=== PATIENT | male | born 1950 | race Two or more races ===

== ENCOUNTER → 2022-11-01 | Outpatient (CLI) | payer MEDICARE, MEDICAID | END | disposition home or self-care (01) | LOC: XYW 08:32 | PROVIDERS: ATTEND Internal Medicine | DX: I08.3 Combined rheumatic disorders of mitral, aortic and tricuspid valves (principal); R07.9 Chest pain, unspecified | CPT/HCPCS: 93306 ==

== ENCOUNTER → 2022-11-01 | Outpatient (CLI) | payer MEDICARE, MEDICAID ==
[2022-11-01 09:47] LABS: Basophils # (auto) 0 10 ^3/uL (0-0.2); Basophils % (auto) 0.3 % (0.0-2.0); Eosinophils # (auto) 0.1 10 ^3/uL (0-0.8); Eosinophils % (auto) 1.1 % (0.0-7.0); Hematocrit 49.9 % (41.0-53.0); Hemoglobin 16.3 g/dL (13.5-17.5); Lymphocytes # (auto) 2.2 10 ^3/uL (0.4-5.4); Lymphocytes % (auto) 41.1 % (10.0-50.0); Mean Corpuscular Hemoglobin 29.7 pg (28.0-32.0); Mean Corpuscular Hgb Conc. 32.6 g/dL (32.0-36.0); Mean Corpuscular Volume 91.1 fL (80.0-100.0); Monocytes # (auto) 0.5 10 ^3/uL (0-1.3); Monocytes % (auto) 9.9 % (0.0-12.0); Neutrophils # (auto) 2.5 10 ^3/uL (1.6-8.6); Neutrophils % (auto) 47.6 % (37.0-80.0); Red Blood Cells 5.49 10^6/uL (4.5-5.90); Red Cell Distribution Width 14.1 % (11.8-14.3); White Blood Cell 5.3 10^3/uL (4.4-10.8)
[2022-11-01 10:04] LABS: Albumin 3.8 g/dL (3.4-5.0); Potassium 4.2 mmol/L (3.5-5.1)
[2022-11-01 10:12] LABS: BUN/Creatinine Ratio 12.6; Bilirubin, Total 0.8 mg/dL (0.2-1.0); Calcium 9.8 mg/dL (8.5-10.1); Free T4 (Free Thyroxine) 1.46 ng/dL (0.89-1.76); Total Protein 7.9 g/dL (6.4-8.2)
[2022-11-01 10:13] LABS: Free T3 3.4 pg/mL (2.3-4.2)
== END | disposition home or self-care (01) ==
LOC: LAB 09:02
PROVIDERS: ATTEND Internal Medicine
DX: I10 Essential (primary) hypertension (principal)
CPT/HCPCS: 36415; 80053; 80061; 84439; 84443; 84481; 85025

== ENCOUNTER → 2022-11-02 | Outpatient (CLI) | payer MEDICARE, MEDICAID ==
[~2022-11-02] VITALS: Ht 175.3 cm; Wt 95.3 kg
[~2022-11-02] MED LIST: ADENOSINE 80 MG in GIVE UN-DILUTED 0 ML IV STA
[2022-11-02 08:49] VITALS: BP 115/73
== END | disposition home or self-care (01) ==
LOC: XYW 08:22 → EDUNIT# 08:30
PROVIDERS: ATTEND Internal Medicine
DX: R07.9 Chest pain, unspecified (principal)
CPT/HCPCS: 78452; 93017; A9500; J0153

== ENCOUNTER → 2022-11-25 | Outpatient (CLI) | payer MEDICARE, MEDICAID ==
[2022-11-25 08:54] LABS: Basophils # (auto) 0 10 ^3/uL (0-0.2); Basophils % (auto) 0.3 % (0.0-2.0); Eosinophils # (auto) 0.1 10 ^3/uL (0-0.8); Eosinophils % (auto) 0.9 % (0.0-7.0); Hematocrit 45.5 % (41.0-53.0); Hemoglobin 16.1 g/dL (13.5-17.5); Lymphocytes # (auto) 2.9 10 ^3/uL (0.4-5.4); Lymphocytes % (auto) 38.6 % (10.0-50.0); Mean Corpuscular Hemoglobin 31.6 pg (28.0-32.0); Mean Corpuscular Hgb Conc. 35.5 g/dL (32.0-36.0); Monocytes # (auto) 0.5 10 ^3/uL (0-1.3); Monocytes % (auto) 6.9 % (0.0-12.0); Neutrophils # (auto) 3.9 10 ^3/uL (1.6-8.6); Neutrophils % (auto) 53.3 % (37.0-80.0); Nucleated Red Blood Cells % 0.2 %; Red Blood Cells 5.11 10^6/uL (4.5-5.90); Red Cell Distribution Width 13.6 % (11.8-14.3); White Blood Cell 7.4 10^3/uL (4.4-10.8)
[2022-11-25 09:06] LABS: Urine Bacteria NONE SEEN /hpf (None Seen); Urine Blood Negative /uL (Negative); Urine Specific Gravity 1.022 (1.001-1.035); Urine Sperm PRESENT /hpf (None Seen); Urine WBC <1 /hpf (0 - 3)
[2022-11-25 09:38] LABS: Potassium 3.9 mmol/L (3.5-5.1)
[2022-11-25 09:42] LABS: BUN/Creatinine Ratio 13.3; Calcium 8.9 mg/dL (8.5-10.1)
== END | disposition home or self-care (01) ==
LOC: LAB 08:29
PROVIDERS: ATTEND Student in an Organized Health Care Education/Training Program
DX: I10 Essential (primary) hypertension (principal); N39.0 Urinary tract infection, site not specified
CPT/HCPCS: 36415; 80048; 81001; 85025; 87086

== ENCOUNTER → 2023-09-30 | Outpatient (CLI) | payer MEDICARE, MEDICAID ==
[2023-09-30 08:49] LABS: Urine Blood Negative /uL (Negative); Urine Clarity Clear (Clear); Urine Color Colorless (Yellow); Urine Protein, UAD Negative (Negative); Urine Specific Gravity 1.012 (1.001-1.035); Urine Urobilinogen Normal (Negative); Urine pH 6.5 (5.0-8.0)
[2023-09-30 09:26] LABS: Alanine Aminotransferase 36 U/L (7-40); Albumin 4.7 g/dL (3.2-4.8); Alkaline Phosphatase 84 U/L (46-116); Anion Gap 5 (5-15); Aspartate Aminotransferase 29 U/L (13-40); Bilirubin, Total 0.8 mg/dL (0.2-1.0); Blood Urea Nitrogen 13 mg/dL (9-23); Calcium 9.8 mg/dL (8.5-10.1); Carbon Dioxide 30 mmol/L (20-30); Chloride 103 mmol/L (98-107); Cholesterol 105 mg/dL (< 200); Glucose 103 mg/dL (74-106); HDL Cholesterol 42 mg/dL (40-59); LDL Cholesterol 47 mg/dL (< 100); Potassium 4.5 mmol/L (3.5-5.1); Sodium 138 mmol/L (136-145); Total Protein 7.5 g/dL (5.7-8.2); Triglycerides 113 mg/dL (< 150)
== END | disposition home or self-care (01) ==
LOC: LAB 08:03
DX: Z12.5 Encounter for screening for malignant neoplasm of prostate (principal); I12.9 Hypertensive chronic kidney disease with stage 1 through stage 4 chronic kidney disease, or unspecified chronic kidney disease; N18.31 Chronic kidney disease, stage 3a; R73.03 Prediabetes
CPT/HCPCS: 36415; 80053; 80061; 81003; 83036; 84153

== ENCOUNTER → 2023-10-10 | Outpatient (CLI) | payer MEDICARE, MEDICAID | END | disposition home or self-care (01) | LOC: LAB 12:48 | DX: I12.9 Hypertensive chronic kidney disease with stage 1 through stage 4 chronic kidney disease, or unspecified chronic kidney disease (principal); N18.31 Chronic kidney disease, stage 3a; R73.03 Prediabetes | CPT/HCPCS: 82274 ==

== ENCOUNTER 2023-12-07 08:53 | Day surgery (SDC) | payer MEDICARE, MEDICAID ==
[~2023-12-07] VITALS: Ht 175.3 cm; Wt 93.4 kg
[2023-12-07] VITALS (8 sets, daily range): BP systolic 87–102; BP diastolic 47–65; PULSE 52–71; RESP 12–16; O2SAT 94–97
[~2023-12-07 08:53] MED LIST changes: -ADENOSINE 80 MG in GIVE UN-DILUTED 0 ML IV STA; +ASPI-543 PO; +ATOR20TA50 PO; +CHOL1CAP58 PO; +DICL50TA4 PO; +DONE1TAB88 PO; +LISI-285 PO; +MELO-335 PO; +PANT40T PO; +TAMS0.4C36 PO
[2023-12-07] MEDS ORDERED: TRAZ-227 PO (09:48)
[2023-12-07] MEDS ORDERED: GABA-1308 PO (09:48)
[2023-12-07] MEDS ORDERED: LORA-483 PO (09:48)
[2023-12-07] MEDS ORDERED: HYDR-4902 PO (09:48)
[2023-12-07] MEDS ORDERED: OXYB5TAB10 PO (09:48)
[2023-12-07] MEDS ORDERED: ERGO1CAP23 PO (10:02)
[2023-12-07] MEDS ORDERED: GABA-1250 PO (10:10)
[2023-12-07] MEDS ORDERED: HEPARIN SODIUM (PORCINE) 5000 UNITS/ML 1ML VIAL ONE (11:42)
[2023-12-07] MEDS ORDERED: ANGIOMAX 250 MG VIAL IV ONE (11:42)
[2023-12-07] MEDS ORDERED: VERAPAMIL 2.5MG/ML INJ 2ML VIAL IV ONE (11:42)
[2023-12-07] MEDS ORDERED: IODIXANOL 320MG/ML 100ML BTL IV ONE (11:43)
[2023-12-07] MEDS ORDERED: MIDAZOLAM HCL 2MG/2ML 2ml VIAL (1mg/ml) ONE (11:43)
[2023-12-07] MEDS ORDERED: SODIUM CHL 0.9% 0 ML ONE (11:43)
[2023-12-07] MEDS ORDERED: fentaNYL CITRATE 100 MCG/2 ML VL ONE (11:43)
[2023-12-07] MEDS ORDERED: LIDOCAINE 2%HCL (LOCAL ANESTH.) INJ 20ML MDV ONE (11:43)
== END 2023-12-07 15:30 | disposition home or self-care (01) ==
LOC: CATH 08:53
PROVIDERS: ATTEND Internal Medicine
DX: I25.10 Atherosclerotic heart disease of native coronary artery without angina pectoris (principal); Z79.1 Long term (current) use of non-steroidal anti-inflammatories (NSAID); Z79.82 Long term (current) use of aspirin; Z79.899 Other long term (current) drug therapy
CPT/HCPCS: 93458; C1769; C1887; C1894; J1644; J2250; J3010; J7030; Q9967; 99152

== ENCOUNTER → 2024-05-28 | Outpatient (CLI) | payer MEDICARE, MEDICAID ==
[~2024-05-28] MED LIST changes: -CHOL1CAP58 PO; +ERGO1CAP23 PO; +GABA-1250 PO; +HYDR-4902 PO; +LORA-483 PO; -MELO-335 PO; +MELO15TA29 PO; +OXYB5TAB14 PO; +TRAZ-227 PO
[2024-05-28 08:06] LABS: Urine Bacteria None Seen /hpf (None Seen)
[2024-05-28 08:16] LABS: Basophils # (auto) 0 10 ^3/uL (0-0.2); Basophils % (auto) 0.6 % (0.0-2.0); Eosinophils # (auto) 0.1 10 ^3/uL (0-0.8); Eosinophils % (auto) 1.5 % (0.0-7.0); Hematocrit 43.9 % (41.0-53.0); Lymphocytes # (auto) 2.7 10 ^3/uL (0.4-5.4); Lymphocytes % (auto) 39.6 % (10.0-50.0); Mean Corpuscular Hemoglobin 30.1 pg (28.0-32.0); Mean Corpuscular Hgb Conc. 34.3 g/dL (32.0-36.0); Mean Corpuscular Volume 87.9 fL (80.0-100.0); Monocytes # (auto) 0.7 10 ^3/uL (0-1.3); Monocytes % (auto) 9.7 % (0.0-12.0); Neutrophils # (auto) 3.4 10 ^3/uL (1.6-8.6); Neutrophils % (auto) 48.6 % (37.0-80.0); Red Blood Cells 4.99 10^6/uL (4.5-5.90); Red Cell Distribution Width 14.7 % (11.8-14.3); White Blood Cell 6.9 10^3/uL (4.4-10.8)
[2024-05-28 08:17] LABS: Urine Blood Negative /uL (Negative); Urine Clarity Clear (Clear); Urine Color Light-Yellow (Yellow); Urine Protein, UAD Negative (Negative); Urine Urobilinogen Normal (Negative); Urine WBC <1 /hpf (0 - 3); Urine pH 5.5 (5.0-9.0)
[2024-05-28 08:49] LABS: Alanine Aminotransferase 26 U/L (7-40); Albumin 4.5 g/dL (3.2-4.8); Alkaline Phosphatase 90 U/L (46-116); Anion Gap 8 (5-15); Aspartate Aminotransferase 21 U/L (13-40); Calcium 9.9 mg/dL (8.7-10.4); Carbon Dioxide 25 mmol/L (20-30); Chloride 105 mmol/L (98-107); Cholesterol 104 mg/dL (< 200); Glucose 104 mg/dL (74-106); Sodium 138 mmol/L (136-145)
[2024-05-28 08:50] LABS: BUN/Creatinine Ratio 14.8 (10.0-20.0); Blood Urea Nitrogen 18 mg/dL (9-23); Triglycerides 132 mg/dL (< 150)
[2024-05-28 08:51] LABS: HDL Cholesterol 44 mg/dL (40-59); LDL Cholesterol 45 mg/dL (< 100)
[2024-05-28 08:52] LABS: Bilirubin, Total 0.7 mg/dL (0.2-1.0); Total Protein 7.1 g/dL (5.7-8.2)
== END | disposition home or self-care (01) ==
LOC: LAB 07:56
PROVIDERS: ATTEND Student in an Organized Health Care Education/Training Program
DX: I10 Essential (primary) hypertension (principal); R73.9 Hyperglycemia, unspecified; R35.1 Nocturia
CPT/HCPCS: 36415; 80053; 80061; 81001; 83036; 84443; 85025

== ENCOUNTER → 2024-09-26 | Outpatient (CLI) | payer MEDICARE, MEDICAID ==
[~2024-09-26] MED LIST changes: -TAMS0.4C36 PO; +TAMS0.4C39 PO
[2024-09-26 07:37] LABS: Urine Bacteria None Seen /hpf (None Seen); Urine WBC None Seen /hpf (0 - 3)
[2024-09-26 08:21] LABS: Basophils # (auto) 0 10 ^3/uL (0-0.2); Basophils % (auto) 0.5 % (0.0-2.0); Eosinophils # (auto) 0.2 10 ^3/uL (0-0.8); Eosinophils % (auto) 2.4 % (0.0-7.0); Hematocrit 46.8 % (41.0-53.0); Hemoglobin 15.6 g/dL (13.5-17.5); Lymphocytes # (auto) 2.6 10 ^3/uL (0.4-5.4); Lymphocytes % (auto) 40.1 % (10.0-50.0); Mean Corpuscular Hemoglobin 30.6 pg (28.0-32.0); Mean Corpuscular Hgb Conc. 33.3 g/dL (32.0-36.0); Mean Corpuscular Volume 91.9 fL (80.0-100.0); Monocytes # (auto) 0.6 10 ^3/uL (0-1.3); Monocytes % (auto) 9.7 % (0.0-12.0); Neutrophils # (auto) 3.1 10 ^3/uL (1.6-8.6); Neutrophils % (auto) 47.3 % (37.0-80.0); Nucleated Red Blood Cells % 0.1 %; Platelet Count (auto) 189 10^3/uL (140-450); Red Blood Cells 5.09 10^6/uL (4.5-5.90); Red Cell Distribution Width 14.6 % (11.8-14.3); White Blood Cell 6.5 10^3/uL (4.4-10.8)
[2024-09-26 08:29] LABS: Urine Blood TRACE /uL (Negative); Urine Clarity Clear (Clear); Urine Color Light-Yellow (Yellow); Urine Protein, UAD Negative (Negative); Urine Specific Gravity 1.018 (1.001-1.035); Urine Urobilinogen Normal (Negative)
[2024-09-26 08:55] LABS: Alanine Aminotransferase 29 U/L (7-40); Alkaline Phosphatase 96 U/L (46-116); Anion Gap 7 (5-15); BUN/Creatinine Ratio 11.3 (10.0-20.0); Blood Urea Nitrogen 13 mg/dL (9-23); Calcium 10.2 mg/dL (8.7-10.4); Carbon Dioxide 29 mmol/L (20-31); Chloride 105 mmol/L (98-107); Glucose 96 mg/dL (74-106); Potassium 4.3 mmol/L (3.5-5.1); Sodium 141 mmol/L (136-145)
[2024-09-26 08:56] LABS: Albumin 4.4 g/dL (3.2-4.8); Aspartate Aminotransferase 22 U/L (13-40); Bilirubin, Total 0.6 mg/dL (0.2-1.0); Total Protein 7.3 g/dL (5.7-8.2)
== END | disposition home or self-care (01) ==
LOC: LAB 07:21
PROVIDERS: ATTEND Student in an Organized Health Care Education/Training Program
DX: I10 Essential (primary) hypertension (principal); R73.9 Hyperglycemia, unspecified
CPT/HCPCS: 36415; 80053; 81001; 83036; 84443; 85025

== ENCOUNTER 2025-04-17 14:40 | Inpatient (IN) | payer MEDICARE, MEDICAID ==
[~2025-04-17] VITALS: Ht 175.3 cm; Wt 90.5 kg
--- NOTE | 2025-04-17 14:53 | ED.PDOC ---
GI ASSESSMENT HPI Comments 74 y.o male presents to the ED for a chief complaint of left sided abdominal pain associated with nausea and vomiting that started 9 days ago. Patient describes pain as sharp, constant and non radiating with no alleviating or precipitating factors. Patient denies any diarrhea, fever, chills, dysuria, hematuria or bloody stool. Patient has a medical history of HTN and multiple muskeletal surgeries. Time Seen by MD: 14:45 Reviewed Notes: Nurses Notes, Medications, Allergies Allergies: Coded Allergies: NO KNOWN ALLERGIES (Unverified , 12/05/23) Home Meds Reported Medications Gabapentin (Gabapentin) 300 Mg Cap, 300 MG PO HS for neuropathy, MG 12/07/23 Ergocalciferol (VITAMIN D 70525 UNIT) 50,000 [place], [address] UNIT PO DAILY, CAP 12/07/23 Oxybutynin Chloride (Oxybutynin Chloride) 5 Mg Tab, 5 MG PO DAILY, TAB 12/07/23 Loratadine (CLARITIN TABLET) 10 Mg Tb, 10 MG PO DAILY for allergies, TAB 12/07/23 Trazodone Hcl (Trazodone Hcl) 50 Mg Tab, 50 MG PO DAILY for anxiety, MG 12/07/23 Hydrocodone-Acetaminophen (Hydrocodone Bitartrate/AC 5-325 mg) 1 Tab Tab, 1 TAB PO BIDP PRN for PAIN SCALE 1 THRU 6, TAB 12/07/23 Aspirin (Aspir-Low) 81 Mg Tab, 81 MG PO DAILY, MG 12/05/23 Meloxicam (Meloxicam) 15 Mg Tab, 1 TAB PO DAILY for arthritic pain, #30 TAB 2 Refills 12/05/23 Tamsulosin Hcl (Tamsulosin Hcl) 0.4 Mg Cap, MG PO QPM for bph for 30 Days, MG 12/05/23 Pantoprazole Sodium Sesquihydr (Pantoprazole Sodium) 40 Mg Tab, 40 MG PO for over active bladder, TAB 12/05/23 Atorvastatin Calcium (ATORVASTATIN CALCIUM) 20 Mg Tab, 1 TAB PO DAILY for hyperlipidemia, #30 TAB 5 Refills 12/05/23 Diclofenac Sodium (Diclofenac Sodium Ec) 50 Mg Tab, 1 TAB PO DAILY for pain, #60 TAB 1 Refill 12/05/23 Donepezil Hydrochloride (DONEPEZIL HCL) 10 Mg Tab, 10 MG PO DAILY for htn, MG 12/05/23 Lisinopril & Hydrochlorothiazi (Lisinopril/Hydrochlorothi) 1 Tab Tab, 1 TAB PO DAILY for htn, #30 TAB 5 Refills 12/05/23 Information Source: Patient Mode of Arrival: Ambulatory Timing: Days (9) Duration: Since onset Quality: Sharp Vomitus: Soft Stool: Normal Severity: Moderate Recent: None Recent Hx of: None Pain Location: LUQ, LLQ Modifying Factors: Nothing Associated sign and symptoms: Nausea, Vomiting, Abdominal Pain Past Medical History PAST MEDICAL HISTORY: HTN Surgical History (Other): back, cervical, right knee Family History Family History: Reviewed,noncontributory to illness Social History Smoker: Non-Smoker Alcohol: Denies ETOH Use Drugs: Denies Drug Use Lives In: Home Constitutional: denies: chills, diaphoresis, fatigue, fever, malaise, sweats, weakness, others EENTM: denies: blurred vision, double vision, ear bleeding, ear discharge, ear drainage, ear pain, ear ringing, eye pain, eye redness, hearing loss, mouth pain, mouth swelling, nasal discharge, nose bleeding, nose congestion, nose pain, photophobia, tearing, throat pain, throat swelling, voice changes, others Respiratory: denies: cough, hemoptysis, orthopnea, SOB at rest, shortness of breath, SOB with excertion, stridor, wheezing, others Cardiovascular: denies: chest pain, dizzy spells, diaphoresis, Dyspnea on exertion, edema, irregular heart beat, left arm pain, lightheadedness, palpitations, PND, syncope, others Gastrointestinal: reports: abdominal pain, nausea, vomiting; denies: abdomen distended, blood streaked bowels, constipated, diarrhea, dysphagia, difficulty swallowing, hematemesis, melena, poor appetite, poor fluid intake, rectal bleeding, rectal pain, others Genitourinary: denies: burning, dysuria, flank pain, frequency, hematuria, incontinence, penile discharge, penile sore, pain, testicle pain, testicle swelling, urgency, others Neurological: denies: dizziness, fainting, headache, left sided numbness, left sided weakness, numbness, paresthesia, pre-existing deficit, right sided numbness, right sided weakness, seizure, speech problems, tingling, tremors, weakness, others Musculoskeletal: denies: back pain, gout, joint pain, joint swelling, muscle pain, muscle stiffness, neck pain, others Integumetry: denies: bruises, change in color, change in hair/nails, dryness, laceration, lesions, lumps, rash, wounds, others Allergic/Immunocompromised: denies: Difficulty Healing, Frequent Infections, Hives, Itching, others Hematologic/Lymphatic: denies: anemia, blood clots, easy bleeding, easy bruising, swollen glands, others Endocrine: denies: excessive hunger, excessive sweating, excessive thirst, excessive urination, flushing, intolerance to cold, intolerance to heat, unexplained weight gain, unexplained weight loss, others Psychiatric: denies: anxiety, bipolar disorder, depression, hopeless, panic disorder, schizophrenia, sleepless, suicidal, others All Other Systems: Reviewed and Negative Physical Exam General Appearance: Moderate Distress HEENT: Normal ENT Inspection, Pharynx Normal, TMs Normal Neck: Full Range of Motion, Non-Tender, Normal, Normal Inspection Respiratory: Chest Non-Tender, Lungs Clear, No Accessory Muscle Use, No Respiratory Distress, Normal Breath Sounds Cardiovascular: No Edema, No JVD, No Murmur, No Gallop, Normal Peripheral Pulses, Regular Rate/Rhythm Breast Exam: Deferred Gastrointestinal: Diffuse Genitalia: Deferred Pelvic: Deferred Rectal: Deferred Extremities: No calf tenderness, Normal capillary refill, Normal inspection, Normal range of motion, Non-tender, No pedal edema Musculoskeletal : Apperance: Normal Neurologic: Alert, marine diver II-XII nml as Tested, No Motor Deficits, Normal Affect, Normal Mood, No Sensory Deficits Cerebellar Function: Normal Reflexes: Normal Skin: Dry, Normal Color, Warm Peripheral Pulses: 3+ Radial (R), 3+ Radial (L) Lymphatic: No Adenopathy Was a procedure done? Was a procedure done?: No GI differential Dx Differential Diagnosis: Constipation, Diverticular disease, Esophagitis, Gastritis/PUD, Gastroenteritis, Inflammatory BD, Electrolyte Imbalance, Food Poisoning, Viral X-Ray, Labs, Meds, VS Vital Signs Date Time Temp Pulse Resp B/P (MAP) Pulse Ox O2 Delivery O2 Flow Rate FiO2 04/17/25 14:51 97.4 70 20 157/82 (107) 96 97.4 Lab Test 04/17/25 15:07 Range/Units White Blood Count 7.7 4.4-10.8 10^3/uL Red Blood Count 5.22 4.5-5.90 10^6/uL Hemoglobin 15.9 13.5-17.5 g/dL Hematocrit 46.7 41.0-53.0 % Mean Corpuscular Volume 89.4 80.0-100.0 fL Mean Corpuscular Hemoglobin 30.5 28.0-32.0 pg Mean Corpuscular Hemoglobin Concent 34.1 32.0-36.0 g/dL Red Cell Distribution Width 13.8 11.8-14.3 % Platelet Count 155 140-450 10^3/uL Mean Platelet Volume 7.4 6.9-10.8 fL Neutrophils (%) (Auto) 64.6 37.0-80.0 % Lymphocytes (%) (Auto) 25.6 10.0-50.0 % Monocytes (%) (Auto) 8.6 0.0-12.0 % Eosinophils (%) (Auto) 0.8 0.0-7.0 % Basophils (%) (Auto) 0.4 0.0-2.0 % Neutrophils # (Auto) 5.0 1.6-8.6 10 ^3/uL Lymphocytes # (Auto) 2.0 0.4-5.4 10 ^3/uL Monocytes # (Auto) 0.7 0-1.3 10 ^3/uL Eosinophils # (Auto) 0.1 0-0.8 10 ^3/uL Basophils # (Auto) 0 0-0.2 10 ^3/uL Nucleated Red Blood Cells 0.0 % Sodium Level 138 136-145 mmol/L Potassium Level 4.2 3.5-5.1 mmol/L Chloride Level 104 98-107 mmol/L Carbon Dioxide Level 27 20-31 mmol/L Anion Gap 7 5-15 Blood Urea Nitrogen 20 9-23 mg/dL Creatinine 1.57 H 0.700-1.30 mg/dL Glomerular Filtration Rate Calc 46 >90 mL/min BUN/Creatinine Ratio 12.7 10.0-20.0 Serum Glucose 108 H 74-106 mg/dL Calcium Level 10.3 8.7-10.4 mg/dL Patient alert. Complaining of abdominal pain. Vitals stable. Answering questions. Blood pressure slightly elevated. Continues to have abdominal pain. Possible colitis. Explained to the patient. Continue to monitor. CT scan of the abdomen reviewed does show diverticulitis. Establish intravenous access. Was given fluids. Was given Rocephin. Was given Flagyl. Time of 1ST Reevaluation: 14:52 Reevaluation 1ST: Unchanged Patient Education/Counseling: Diagnosis, Treatment, Prognosis Family Education/Counseling: Diagnosis, Treatment, Prognosis Departure 1 Departure Time of Disposition: 15:01 Impression: Primary Impression: Acute diverticulitis Disposition: ADMITTED INPATIENT Admit to: Med Surg Condition: Guarded Critical Care Note Critical Care Time?: No Stability Stability form required: No Heart Score Heart Score: Heart Score Response (Comments) Value History N/A 0 EKG N/A 0 Age N/A 0 Risk Factors N/A 0 Troponin N/A 0 Total 0 I personally scribed for DAGO CHAVEZ MD ([email or web address]) on 04/17/25 at 14:53. Electronically submitted by Naheed Horner ([facility]). DAGO CHAVEZ MD Apr 17, 2025 14:53
[2025-04-17 15:29] LABS: Basophils # (auto) 0 10 ^3/uL (0-0.2); Basophils % (auto) 0.4 % (0.0-2.0); Eosinophils # (auto) 0.1 10 ^3/uL (0-0.8); Eosinophils % (auto) 0.8 % (0.0-7.0); Hematocrit 46.7 % (41.0-53.0); Hemoglobin 15.9 g/dL (13.5-17.5); Lymphocytes % (auto) 25.6 % (10.0-50.0); Mean Corpuscular Hemoglobin 30.5 pg (28.0-32.0); Mean Corpuscular Hgb Conc. 34.1 g/dL (32.0-36.0); Mean Corpuscular Volume 89.4 fL (80.0-100.0); Monocytes # (auto) 0.7 10 ^3/uL (0-1.3); Monocytes % (auto) 8.6 % (0.0-12.0); Neutrophils % (auto) 64.6 % (37.0-80.0); Platelet Count (auto) 155 10^3/uL (140-450); Red Blood Cells 5.22 10^6/uL (4.5-5.90); Red Cell Distribution Width 13.8 % (11.8-14.3); White Blood Cell 7.7 10^3/uL (4.4-10.8)
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
[2025-04-17 15:38] LABS: Chloride 104 mmol/L (98-107); Potassium 4.2 mmol/L (3.5-5.1); Sodium 138 mmol/L (136-145)
[2025-04-17 15:39] LABS: Anion Gap 7 (5-15); Calcium 10.3 mg/dL (8.7-10.4); Carbon Dioxide 27 mmol/L (20-31)
[2025-04-17 15:44] LABS: BUN/Creatinine Ratio 12.7 (10.0-20.0); Blood Urea Nitrogen 20 mg/dL (9-23)
[2025-04-17 15:47] LABS: Glucose 108 mg/dL (74-106)
[2025-04-17 16:20] LABS: Urine Bacteria None Seen /hpf (None Seen)
[2025-04-17 16:47] LABS: Urine Blood Negative /uL (Negative); Urine Clarity Clear (Clear); Urine Color Yellow (Yellow); Urine Hyaline Cast MANY /lpf (0 - 2); Urine Protein, UAD Negative (Negative); Urine Specific Gravity 1.015 (1.001-1.035); Urine Squamous Epithelial Cell None Seen /hpf (<5); Urine Urobilinogen Normal (Negative); Urine WBC < 1 /HPF (0-3)
[2025-04-17] MEDS: SODIUM CHLORIDE 0.9% 1,000 ML IV ONE (16:47)
[2025-04-17] MEDS: cefTRIAXone 1GM/50ML D5W 50 ML IV ONE (16:48)
[2025-04-17] MEDS: metroNIDAZOLE 500MG/100ML 100 ML IV ONE (16:59)
[2025-04-17] MEDS: ONDANSETRON HCL 4 MG/2 ML VIAL IV ONE (17:11)
[2025-04-17] MEDS: MORPHINE SULFATE 4 MG/ML SYR/VIAL IV ONE (17:12)
[2025-04-17] MEDS ORDERED: MORPHINE SULFATE 4 MG/ML SYR/VIAL IV ONE (17:15)
[2025-04-17] MEDS ORDERED: ONDANSETRON HCL 4 MG/2 ML VIAL IV ONE (17:15)
--- NOTE | 2025-04-17 17:17 | ECG ---
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
[2025-04-17] MEDS ORDERED: ONDANSETRON HCL 4 MG/2 ML VIAL IV PRN (17:30)
[2025-04-17] MEDS ORDERED: MORPHINE SULFATE INJ 2 MG/ml SYRG IV PRN (17:30)
[2025-04-17] MEDS ORDERED: NITROGLYCERIN 0.4 MG SL TAB SL PRN (17:30)
[2025-04-17] MEDS ORDERED: ACETAMINOPHEN 325 MG TAB PO PRN (17:30)
[2025-04-17] MEDS ORDERED: HYDROcodone-ACET 5/325MG TAB PO PRN (17:30)
[2025-04-17] MEDS ORDERED: hydrALAZINE HCL 20 MG/ML VL IV PRN (18:00)
[2025-04-17 18:20] VITALS: BP 159/53; PULSE 59; RESP 16; TEMP 97.1; O2SAT 96
[2025-04-17 21:00] VITALS: BP 156/93; PULSE 57; RESP 18; TEMP 97.7; O2SAT 98
[2025-04-17] MEDS: TAMSULOSIN HYDROCHLORIDE 0.4 MG CAP PO SCH (21:32)
[2025-04-17] MEDS: GABAPENTIN 300 MG CAP PO SCH (21:32)
[2025-04-17] MEDS: SODIUM CHLORIDE 0.9% 1,000 ML IV SCH (21:33)
[2025-04-17] MEDS: PIPERACILLIN-TAZOB 3.375GM 100 ML IV SCH (21:33)
[2025-04-18] VITALS (7 sets, daily range): BP systolic 112–142; BP diastolic 59–72; PULSE 56–65; RESP 16–19; TEMP 97.3–98.2; O2SAT 95–98
[2025-04-18 06:16] LABS: Basophils # (auto) 0 10 ^3/uL (0-0.2); Basophils % (auto) 0.4 % (0.0-2.0); Eosinophils # (auto) 0.1 10 ^3/uL (0-0.8); Eosinophils % (auto) 1.6 % (0.0-7.0); Hematocrit 43.7 % (41.0-53.0); Hemoglobin 14.8 g/dL (13.5-17.5); Lymphocytes # (auto) 1.7 10 ^3/uL (0.4-5.4); Lymphocytes % (auto) 30.7 % (10.0-50.0); Mean Corpuscular Hemoglobin 30.4 pg (28.0-32.0); Mean Corpuscular Hgb Conc. 33.8 g/dL (32.0-36.0); Mean Corpuscular Volume 89.8 fL (80.0-100.0); Monocytes # (auto) 0.6 10 ^3/uL (0-1.3); Monocytes % (auto) 10.5 % (0.0-12.0); Neutrophils # (auto) 3.1 10 ^3/uL (1.6-8.6); Neutrophils % (auto) 56.8 % (37.0-80.0); Nucleated Red Blood Cells % 0.1 %; Platelet Count (auto) 153 10^3/uL (140-450); Red Blood Cells 4.86 10^6/uL (4.5-5.90); Red Cell Distribution Width 13.9 % (11.8-14.3); White Blood Cell 5.4 10^3/uL (4.4-10.8)
[2025-04-18 06:38] LABS: Alanine Aminotransferase 22 U/L (7-40); Alkaline Phosphatase 85 U/L (46-116); Anion Gap 7 (5-15); BUN/Creatinine Ratio 11.5 (10.0-20.0); Blood Urea Nitrogen 16 mg/dL (9-23); Calcium 9.7 mg/dL (8.7-10.4); Carbon Dioxide 29 mmol/L (20-31); Chloride 104 mmol/L (98-107); Glucose 97 mg/dL (74-106); Potassium 4.5 mmol/L (3.5-5.1); Sodium 140 mmol/L (136-145)
[2025-04-18 06:39] LABS: Albumin 4.4 g/dL (3.2-4.8); Aspartate Aminotransferase 23 U/L (13-40)
[2025-04-18 06:40] LABS: Bilirubin, Total 1.2 mg/dL (0.2-1.0)
--- NOTE | 2025-04-18 09:25 | DVHINCON2 ---
Consultation - Surgical Date Seen: Apr 18, 2025 Referring Physician Reason for Consultation abd pain History of Present Illness History of Present Illness 74M w mild vague abd pain found to have stool retention 2/2 constipation and diverticulosis with questionable mild segment of diverticulitis. Pain first started ~2wks ago and has persisted since. Reports nausea and nb/nb emesis prior to admission but not since being admitted. No f/c, melena, hematochezia. Past Medical/Surgical History Past Medical/Surgical History HTN, BPH, HLD MULTIPLE ORTHO SURGERIES, NO ABD SURGERY HX Family and Social History Family and Social History NO TOB, ETOH, DRUGS FAMILY NONCONTRIBUTORY Allergies and medications Allergies: Coded Allergies: NO KNOWN ALLERGIES (Unverified , 12/05/23) Home Meds Reported Medications Gabapentin (Gabapentin) 300 Mg Cap, 300 MG PO HS for neuropathy, MG 12/07/23 Ergocalciferol (VITAMIN D 04784 UNIT) 50,000 [place], [address] UNIT PO DAILY, CAP 12/07/23 Oxybutynin Chloride (Oxybutynin Chloride) 5 Mg Tab, 5 MG PO DAILY, TAB 12/07/23 Loratadine (CLARITIN TABLET) 10 Mg Tb, 10 MG PO DAILY for allergies, TAB 12/07/23 Trazodone Hcl (Trazodone Hcl) 50 Mg Tab, 50 MG PO DAILY for anxiety, MG 12/07/23 Hydrocodone-Acetaminophen (Hydrocodone Bitartrate/AC 5-325 mg) 1 Tab Tab, 1 TAB PO BIDP PRN for PAIN SCALE 1 THRU 6, TAB 12/07/23 Aspirin (Aspir-Low) 81 Mg Tab, 81 MG PO DAILY, MG 12/05/23 Meloxicam (Meloxicam) 15 Mg Tab, 1 TAB PO DAILY for arthritic pain, #30 TAB 2 Refills 12/05/23 Tamsulosin Hcl (Tamsulosin Hcl) 0.4 Mg Cap, MG PO QPM for bph for 30 Days, MG 12/05/23 Pantoprazole Sodium Sesquihydr (Pantoprazole Sodium) 40 Mg Tab, 40 MG PO for over active bladder, TAB 12/05/23 Atorvastatin Calcium (ATORVASTATIN CALCIUM) 20 Mg Tab, 1 TAB PO DAILY for hyperlipidemia, #30 TAB 5 Refills 12/05/23 Diclofenac Sodium (Diclofenac Sodium Ec) 50 Mg Tab, 1 TAB PO DAILY for pain, #60 TAB 1 Refill 12/05/23 Donepezil Hydrochloride (DONEPEZIL HCL) 10 Mg Tab, 10 MG PO DAILY for htn, MG 12/05/23 Lisinopril & Hydrochlorothiazi (Lisinopril/Hydrochlorothi) 1 Tab Tab, 1 TAB PO DAILY for htn, #30 TAB 5 Refills 12/05/23 Review of systems Review of Systems: HEENT:Normal, CVS:Normal, RESPIRATORY:Normal, GI:Abnormal (ABD POAIN, NAUSEA, VOMITTING), :Normal, MSK:Normal, NEURO:Normal Examination Vital signs Vital Signs Date Time Temp Pulse Resp B/P (MAP) Pulse Ox O2 Delivery O2 Flow Rate FiO2 04/18/25 08:36 98.2 56 16 115/67 (83) 98 98.2 04/17/25 20:00 Room Air* 0 21 Medications Current Medications Medications (Trade) Dose Ordered Sig/Zoila Route PRN Reason Start Time Stop Time Status Last Admin Piperacillin Sod/ Tazobactam Sod 100 ml @ 25 mls/hr Q8HR IV 04/17/25 22:00 04/18/25 06:14 Sodium Chloride 1,000 ml @ 120 mls/hr Q8H20M IV 04/17/25 17:30 04/18/25 01:50 Acetaminophen/ Hydrocodone Bitart ([place] 5/325MG Tab) 1 tab Q4HP PRN PO MODERATE PAIN (4-6 PAIN SCALE) 04/17/25 17:30 Ondansetron HCl (Zofran) 4 mg Q4HP PRN IV NAUSEA / VOMITING 04/17/25 17:30 Acetaminophen (Tylenol Tablet) 650 mg Q6HP PRN PO PAIN SCALE 1-3 OR TEMP>100.4 04/17/25 17:30 Morphine Sulfate 2 mg Q4HPRN PRN IV SEVERE PAIN (7-10 PAIN SCALE) 04/17/25 17:30 Nitroglycerin (Ntrostat Sublingual) 0.4 mg Q5MINP PRN SL FOR CHEST PAIN 04/17/25 17:30 Morphine Sulfate 2 mg Q30M PRN IV FOR CHEST PAIN 04/17/25 17:30 Aspirin (Ecotrin Enteric Coated Tablet) 81 mg DAILY PO 04/18/25 10:00 Atorvastatin Calcium (Lipitor) 20 mg HS PO 04/18/25 22:00 Ergocalciferol (Vitamin D 50,000 Unit) 50,000 unit Q7D PO 04/18/25 10:00 Gabapentin (Neurontin Capsule) 300 mg HS PO 04/17/25 22:00 04/17/25 21:32 Oxybutynin Chloride (Ditropan Tablet) 5 mg DAILY PO 04/18/25 10:00 Tamsulosin HCl (Flomax) 0.4 mg QPM PO 04/17/25 18:00 04/17/25 21:32 Donepezil HCl (Aricept Tablet) 10 mg DAILY PO 04/18/25 10:00 Lisinopril (Zestril Tablet) 20 mg DAILY PO 04/18/25 10:00 Pantoprazole Sodium (Protonix) 40 mg DAILY IV 04/18/25 10:00 Hydralazine HCl (Apresoline Injection) 10 mg Q6HP PRN IV SBP>150 04/17/25 18:00 Hydrochlorothiazide (hydroCHLOROthiazide TABLET) 25 mg DAILY PO 04/18/25 10:00 Laboratory Labs Test 04/18/25 05:34 04/17/25 16:19 04/17/25 15:07 Range/Units White Blood Count 5.4 # 4.4-10.8 10^3/uL Red Blood Count 4.86 4.5-5.90 10^6/uL Hemoglobin 14.8 13.5-17.5 g/dL Hematocrit 43.7 41.0-53.0 % Mean Corpuscular Volume 89.8 80.0-100.0 fL Mean Corpuscular Hemoglobin 30.4 28.0-32.0 pg Mean Corpuscular Hemoglobin Concent 33.8 32.0-36.0 g/dL Red Cell Distribution Width 13.9 11.8-14.3 % Platelet Count 153 140-450 10^3/uL Mean Platelet Volume 7.6 6.9-10.8 fL Neutrophils (%) (Auto) 56.8 37.0-80.0 % Lymphocytes (%) (Auto) 30.7 10.0-50.0 % Monocytes (%) (Auto) 10.5 0.0-12.0 % Eosinophils (%) (Auto) 1.6 0.0-7.0 % Basophils (%) (Auto) 0.4 0.0-2.0 % Neutrophils # (Auto) 3.1 1.6-8.6 10 ^3/uL Lymphocytes # (Auto) 1.7 0.4-5.4 10 ^3/uL Monocytes # (Auto) 0.6 0-1.3 10 ^3/uL Eosinophils # (Auto) 0.1 0-0.8 10 ^3/uL Basophils # (Auto) 0 0-0.2 10 ^3/uL Nucleated Red Blood Cells 0.1 % Sodium Level 140 136-145 mmol/L Potassium Level 4.5 3.5-5.1 mmol/L Chloride Level 104 98-107 mmol/L Carbon Dioxide Level 29 20-31 mmol/L Anion Gap 7 5-15 Blood Urea Nitrogen 16 9-23 mg/dL Creatinine 1.39 H 0.700-1.30 mg/dL Glomerular Filtration Rate Calc 53 >90 mL/min BUN/Creatinine Ratio 11.5 10.0-20.0 Serum Glucose 97 74-106 mg/dL Calcium Level 9.7 8.7-10.4 mg/dL Total Bilirubin 1.2 H 0.2-1.0 mg/dL Aspartate Amino Transferase (AST) 23 13-40 U/L Alanine Aminotransferase (ALT) 22 7-40 U/L Alkaline Phosphatase 85 46-116 U/L Total Protein 7.0 5.7-8.2 g/dL Albumin 4.4 3.2-4.8 g/dL Urine Color Yellow Yellow Urine Clarity Clear Clear Urine pH 5.0 5.0-9.0 Urine Specific [place] 1.015 1.001-1.035 Urine Protein Negative Negative Urine Ketones Negative Negative Urine Blood Negative Negative /uL Urine Nitrite Negative Negative Urine Bilirubin Negative Negative Urine Urobilinogen Normal Negative mg/dL Urine Leukocyte Esterase Negative Negative /uL Urine RBC <1 0 - 3 /hpf Urine Microscopic WBC < 1 0-3 /HPF Urine Squamous Epithelial Cells None seen <5 /hpf Urine Bacteria None seen None Seen /hpf Urine Hyaline Casts Many 0 - 2 /lpf Urine Glucose Normal Normal mg/dL Examination: GENERAL:Normal (NA WD/WN), HEENT:Normal (ANICTERIC, EOMI), NECK:Normal (SUPPLE, TRACHAE MIDLINE), LUNGS:Normal (CTAB, NO WRR), CVS:Normal (RRR, +PULSES B/L), ABDOMEN:Normal (S, ND, VERY MILD TENDERNESS TO DEEP PALPATION), MSK:Normal (ATRAUMATIC, FULL ROM), SKIN:Normal (C/D/I, WARM AND WELL PERFUSED), NEURO:Normal (GROSSLY INTACT, APPROPRIATE) Problem List/Assessment/Plan Problems: (1) Constipation (2) Acute diverticulitis (3) Non-specific colitis Assessment and Plan 74M admitted w abd pain x2ks found to have fecal retention 2/2 constipation and uncomplicated diverticulitis no leukocytosis, abd exam benign CT reviewed, sigmoid diverticulosis with question of mild diverticulitis and large stool burden in sigmoid colon suggestive of constipation no acute surgical interventions indicated medical management per primary from surgical standpoint can resume PO diet bowel regimen encourage OOB and ambulate encourage hydration avoid narcotics vte ppx Plan discussed with Plan discussed with: Patient Visit Coding Surgery Date of Service if different f: Apr 18, 2025 Billing Provider: DESIREE ZAVALA MD Surgery Visit Codes: 19707 - INP CONSULT <55 MIN DESIREE ZAVALA MD Apr 18, 2025 09:25
[2025-04-18] MEDS: ASPirin-EC 81 mg tab PO SCH (09:34)
[2025-04-18] MEDS: PANTOPRAZOLE 40 MG/10 ML VIAL INJ IV SCH (09:34)
[2025-04-18] MEDS: LISINOPRIL 20 MG TAB PO SCH (09:35)
[2025-04-18] MEDS: DONEPEZIL HYDROCHLORIDE 5 MG TAB PO SCH (09:36)
[2025-04-18] MEDS: hydroCHLOROthiazide 25 MG TAB PO SCH (09:39)
[2025-04-18] MEDS: OXYBUTYNIN CHL 5 MG TAB PO SCH (09:39)
[2025-04-18] MEDS: ERGOCALCIFEROL 50,000 UNIT(1.25MG) CAP PO SCH (09:40)
[2025-04-18] MEDS: MORPHINE SULFATE 4 MG/ML SYR/VIAL IV PRN (09:53)
[2025-04-18] MEDS: SODIUM CHLORIDE 0.9% 1,000 ML IV SCH (14:30)
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
[2025-04-18] MEDS: cefTRIAXone 1GM/50ML D5W 50 ML IV SCH (16:35)
[2025-04-18] MEDS: ATORVASTATIN 20 MG TAB PO SCH (22:35)
[2025-04-18] MEDS: metroNIDAZOLE 500MG/100ML 100 ML IV SCH (22:35)
[2025-04-19] VITALS (7 sets, daily range): BP systolic 121–130; BP diastolic 71–89; PULSE 63–76; RESP 14–19; TEMP 95.8–98.1; O2SAT 97–99
[2025-04-19 07:53] LABS: Chloride 103 mmol/L (98-107); Potassium 4.1 mmol/L (3.5-5.1); Sodium 141 mmol/L (136-145)
[2025-04-19 07:54] LABS: Anion Gap 9 (5-15); Carbon Dioxide 29 mmol/L (20-31)
[2025-04-19 07:57] LABS: Calcium 10.8 mg/dL (8.7-10.4)
[2025-04-19 07:59] LABS: BUN/Creatinine Ratio 10.6 (10.0-20.0); Blood Urea Nitrogen 13 mg/dL (9-23); Glucose 87 mg/dL (74-106)
[2025-04-19 08:07] LABS: PSA Free 1.3 ng/mL; Prostate Specific Antigen 2.6 ng/mL (0.0-4.0)
--- NOTE | 2025-04-19 08:50 | DVHPN2 ---
Progress Note Date Seen: Apr 19, 2025 Medical Necessity Reason Pt with a Central, PICC or Fol: No Objective vital signs Vital Sign Date Time Temp Pulse Resp B/P (MAP) Pulse Ox O2 Delivery O2 Flow Rate FiO2 04/19/25 05:13 95.8 76 19 121/89 (100) 99 95.8 04/18/25 20:00 Room Air* 0 21 Total Intake and Output 04/18/25 04/18/25 04/19/25 15:00 23:00 07:00 Intake Total 150 ml 240 ml Balance 150 ml 240 ml medications Current Medications Medications Dose Ordered Sig/Zoila Route Start Time Stop Time Status Last Admin Dose Admin Acetaminophen/ Hydrocodone Bitart 1 tab Q4HP PRN PO 04/17/25 17:30 Ondansetron HCl 4 mg Q4HP PRN IV 04/17/25 17:30 Acetaminophen 650 mg Q6HP PRN PO 04/17/25 17:30 Morphine Sulfate 2 mg Q4HPRN PRN IV 04/17/25 17:30 04/18/25 09:53 2 MG Nitroglycerin 0.4 mg Q5MINP PRN SL 04/17/25 17:30 Morphine Sulfate 2 mg Q30M PRN IV 04/17/25 17:30 Aspirin 81 mg DAILY PO 04/18/25 10:00 04/18/25 09:34 81 MG Atorvastatin Calcium 20 mg HS PO 04/18/25 22:00 04/18/25 22:35 20 MG Gabapentin 300 mg HS PO 04/17/25 22:00 04/18/25 22:35 300 MG Oxybutynin Chloride 5 mg DAILY PO 04/18/25 10:00 Tamsulosin HCl 0.4 mg QPM PO 04/17/25 18:00 04/18/25 16:35 0.4 MG Donepezil HCl 10 mg DAILY PO 04/18/25 10:00 04/18/25 09:36 10 MG Pantoprazole Sodium 40 mg DAILY IV 04/18/25 10:00 04/18/25 09:34 40 MG Hydralazine HCl 10 mg Q6HP PRN IV 04/17/25 18:00 Sodium Chloride 1,000 ml @ 100 mls/hr Q10H IV 04/18/25 14:30 04/19/25 01:55 100 MLS/HR Lisinopril 10 mg DAILY PO 04/19/25 10:00 Ceftriaxone Sodium 50 ml @ 100 mls/hr DAILY@09 IV 04/18/25 14:52 04/18/25 16:35 100 MLS/HR Metronidazole 100 ml @ 100 mls/hr Q8HR IV 04/18/25 22:00 04/19/25 05:50 100 MLS/HR laboratory and microbiology Laboratory Tests 04/19/25 06:08 04/18/25 05:34 Test 04/19/25 06:08 Range/Units Serum Glucose 87 74-106 mg/dL Problem List/Assessment/Plan Problem List/Assessment/Plan 04/19/25 much less pain, essentially non tender, ok to resume po intake Plan discussed with: Patient LIZ CESPEDES MD Apr 19, 2025 08:50
[2025-04-19] MEDS: LISINOPRIL 5 MG TAB PO SCH (08:51)
[2025-04-19] MEDS ORDERED: AUG875T PO (15:28)
[2025-04-19] MEDS ORDERED: ZOFR4T PO (15:28)
[2025-04-19] MEDS ORDERED: HYDR-4902 PO (15:28)
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
== END 2025-04-19 18:05 | disposition home or self-care (01) | DRG 391 ==
LOC: ER 14:40 → OVERFLOW 17:26 → CENTRAL 18:19
PROVIDERS: ADMIT Student in an Organized Health Care Education/Training Program; ATTEND Student in an Organized Health Care Education/Training Program
DX: K57.32 Diverticulitis of large intestine without perforation or abscess without bleeding (principal); N17.0 Acute kidney failure with tubular necrosis; K59.00 Constipation, unspecified; I25.10 Atherosclerotic heart disease of native coronary artery without angina pectoris; M16.0 Bilateral primary osteoarthritis of hip; N40.0 Benign prostatic hyperplasia without lower urinary tract symptoms; K21.9 Gastro-esophageal reflux disease without esophagitis; E78.5 Hyperlipidemia, unspecified; I12.9 Hypertensive chronic kidney disease with stage 1 through stage 4 chronic kidney disease, or unspecified chronic kidney disease; G62.9 Polyneuropathy, unspecified; N18.2 Chronic kidney disease, stage 2 (mild); Z79.82 Long term (current) use of aspirin; Z79.899 Other long term (current) drug therapy
CPT/HCPCS: 36415; 74176; 80048; 80053; 81001; 84154; 85025; 93005; 96361; 96365; G0378; J2405; J2470; J2543; J3490

== ENCOUNTER 2025-08-05 15:46 | Emergency (ER) | payer MEDICARE, MEDICAID ==
[~2025-08-05] VITALS: Ht 167.6 cm; Wt 79.8 kg
[~2025-08-05 15:46] MED LIST changes: +AUG875T PO; +ZOFR4T PO
[2025-08-05 15:55] VITALS: BP 115/70; PULSE 70; RESP 19; TEMP 97.9; O2SAT 94
--- NOTE | 2025-08-05 16:32 | ED.PDOC ---
General HPI Comments 75 year old male presents to the ED with a chief complaint of dysuria onset 10 days. Patient states he has been experiencing painful urination for the past 10 days as well as nausea. Patient has chronic back pain, noticed pain has worsen the past 10 days. Denies hematuria, abdominal pain, vomiting, fever, chills. No other symptoms or modifying factors present at this time. Chief Complaint: Urinary Time Seen by MD: 16:10 Reviewed notes: Medications, Allergies Allergies: Coded Allergies: NO KNOWN ALLERGIES (Unverified , 12/05/23) Home Meds Active Scripts Ondansetron Odt 4MG Tab (ZOFRAN PO) 4 Mg Tb, 4 MG PO TIDP PRN for 5 Days, #15 TAB 0 Refills ODT TAB-DISSOLVE IN MOUTH, THEN SWALLOW Prov:NIDIA LIRA MD 04/19/25 Hydrocodone-Acetaminophen (Hydrocodone Bitartrate/AC 5-325 mg) 1 Tab Tab, 1 TAB PO TIDP PRN for 4 Days, #12 TAB 0 Refills Prov:NIDIA LIRA MD 04/19/25 Amoxicillin & Pot Clavulanate (AUGMENTIN TABLET) 875 Mg Tb, 875 MG PO BID for 5 Days, #10 TAB 0 Refills Prov:NIDIA LIRA MD 04/19/25 Reported Medications Gabapentin (Gabapentin) 300 Mg Cap, 300 MG PO HS for neuropathy, MG 12/07/23 Ergocalciferol (VITAMIN D 57135 UNIT) 50,000 [place], [address] UNIT PO DAILY, CAP 12/07/23 Oxybutynin Chloride (Oxybutynin Chloride) 5 Mg Tab, 5 MG PO DAILY, TAB 12/07/23 Loratadine (CLARITIN TABLET) 10 Mg Tb, 10 MG PO DAILY for allergies, TAB 12/07/23 Trazodone Hcl (Trazodone Hcl) 50 Mg Tab, 50 MG PO DAILY for anxiety, MG 12/07/23 Hydrocodone-Acetaminophen (Hydrocodone Bitartrate/AC 5-325 mg) 1 Tab Tab, 1 TAB PO BIDP PRN for PAIN SCALE 1 THRU 6, TAB 12/07/23 Aspirin (Aspir-Low) 81 Mg Tab, 81 MG PO DAILY, MG 12/05/23 Meloxicam (Meloxicam) 15 Mg Tab, 1 TAB PO DAILY for arthritic pain, #30 TAB 2 Refills 12/05/23 Tamsulosin Hcl (Tamsulosin Hcl) 0.4 Mg Cap, MG PO QPM for bph for 30 Days, MG 12/05/23 Pantoprazole Sodium Sesquihydr (Pantoprazole Sodium) 40 Mg Tab, 40 MG PO for over active bladder, TAB 12/05/23 Atorvastatin Calcium (ATORVASTATIN CALCIUM) 20 Mg Tab, 1 TAB PO DAILY for hyperlipidemia, #30 TAB 5 Refills 12/05/23 Diclofenac Sodium (Diclofenac Sodium Ec) 50 Mg Tab, 1 TAB PO DAILY for pain, #60 TAB 1 Refill 12/05/23 Donepezil Hydrochloride (DONEPEZIL HCL) 10 Mg Tab, 10 MG PO DAILY for htn, MG 12/05/23 Lisinopril & Hydrochlorothiazi (Lisinopril/Hydrochlorothi) 1 Tab Tab, 1 TAB PO DAILY for htn, #30 TAB 5 Refills 12/05/23 Information Source: Patient, Relative Mode of Arrival: Ambulatory Severity: Moderate Timing: Days Duration: Since onset Prehospital treatment: None Onset: Spontaneous Symptoms: Dysuria History of: None Location: None Penile discharge: None Modifying factors: None associated signs and symptoms: Dysuria Past Medical History PAST MEDICAL HISTORY: HTN Surgical History: Denies all surgeries Family History Family History: Reviewed,noncontributory to illness Social History Smoker: Non-Smoker Alcohol: Denies ETOH Use Drugs: Denies Drug Use Lives In: Home Constitutional: denies: chills, diaphoresis, fatigue, fever, malaise, sweats, weakness, others EENTM: denies: blurred vision, double vision, ear bleeding, ear discharge, ear drainage, ear pain, ear ringing, eye pain, eye redness, hearing loss, mouth pain, mouth swelling, nasal discharge, nose bleeding, nose congestion, nose pain, photophobia, tearing, throat pain, throat swelling, voice changes, others Respiratory: denies: cough, hemoptysis, orthopnea, SOB at rest, shortness of breath, SOB with excertion, stridor, wheezing, others Cardiovascular: denies: chest pain, dizzy spells, diaphoresis, Dyspnea on exertion, edema, irregular heart beat, left arm pain, lightheadedness, palpitations, PND, syncope, others Gastrointestinal: reports: nausea; denies: abdomen distended, abdominal pain, blood streaked bowels, constipated, diarrhea, dysphagia, difficulty swallowing, hematemesis, melena, poor appetite, poor fluid intake, rectal bleeding, rectal pain, vomiting, others Genitourinary: reports: dysuria; denies: burning, flank pain, frequency, hematuria, incontinence, penile discharge, penile sore, pain, testicle pain, testicle swelling, urgency, others Neurological: denies: dizziness, fainting, headache, left sided numbness, left sided weakness, numbness, paresthesia, pre-existing deficit, right sided numbness, right sided weakness, seizure, speech problems, tingling, tremors, weakness, others Musculoskeletal: reports: back pain; denies: gout, joint pain, joint swelling, muscle pain, muscle stiffness, neck pain, others Integumetry: denies: bruises, change in color, change in hair/nails, dryness, laceration, lesions, lumps, rash, wounds, others Allergic/Immunocompromised: denies: Difficulty Healing, Frequent Infections, Hives, Itching, others Hematologic/Lymphatic: denies: anemia, blood clots, easy bleeding, easy bruising, swollen glands, others Endocrine: denies: excessive hunger, excessive sweating, excessive thirst, excessive urination, flushing, intolerance to cold, intolerance to heat, unexplained weight gain, unexplained weight loss, others Psychiatric: denies: anxiety, bipolar disorder, depression, hopeless, panic disorder, schizophrenia, sleepless, suicidal, others All Other Systems: Reviewed and Negative Physical Exam General Appearance: No Apparent Distress, Normal HEENT: Normal ENT Inspection, Pharynx Normal, TMs Normal Neck: Full Range of Motion, Non-Tender, Normal, Normal Inspection Respiratory: Chest Non-Tender, Lungs Clear, No Accessory Muscle Use, No Respiratory Distress, Normal Breath Sounds Cardiovascular: No Edema, No JVD, No Murmur, No Gallop, Normal Peripheral Pulses, Regular Rate/Rhythm Breast Exam: Deferred Gastrointestinal: No Organomegaly, Non Tender, No Pulsatile Mass, Normal Bowel Sounds, Soft Genitalia: Deferred Pelvic: Deferred Rectal: Deferred Extremities: No calf tenderness, Normal capillary refill, Normal inspection, Normal range of motion, Non-tender, No pedal edema Musculoskeletal : Apperance: Normal Neurologic: Alert, diamond grader II-XII nml as Tested, No Motor Deficits, Normal Affect, Normal Mood, No Sensory Deficits Cerebellar Function: Normal Reflexes: Normal Skin: Dry, Normal Color, Warm Lymphatic: No Adenopathy Was a procedure done? Was a procedure done?: No X-Ray, Labs, Meds, VS Vital Signs Date Time Temp Pulse Resp B/P (MAP) Pulse Ox O2 Delivery O2 Flow Rate FiO2 08/05/25 15:55 97.9 70 19 115/70 94 97.9 Time of 1ST Reevaluation: 16:40 Reevaluation 1ST: Unchanged Patient Education/Counseling: Diagnosis, Treatment, Prognosis Family Education/Counseling: Diagnosis, Treatment, Prognosis SEPSIS Sepsis Screen Date sepsis recognized/suspect: Aug 05, 2025 Time Sepsis recognized/suspect: 155 Recent Procedure: No On Antibiotic Therapy: No Respiratory Rate >20: No Heart Rate >90: No Temp<36 C (96.8 F) or >38.3 C: No SBP <90 or MAP <65 mmHG: No New Acute Mental Status Change: No Is the patient on CPAP, BIPAP,: No Vital Signs Date Time Temp Pulse Resp B/P (MAP) Pulse Ox O2 Delivery O2 Flow Rate FiO2 08/05/25 15:55 97.9 70 19 115/70 94 97.9 Critical Care Note Critical Care Time?: No Stability Stability form required: No Heart Score Heart Score: Heart Score Response (Comments) Value History N/A 0 EKG N/A 0 Age N/A 0 Risk Factors N/A 0 Troponin N/A 0 Total 0 I personally scribed for ARTUR ANGELES MD ([email or web address]) on 08/05/25 at 16:32. Electronically submitted by Molly Bruno ([email or web address]). RATUR ANGELES MD Aug 05, 2025 16:32
[2025-08-05 17:23] LABS: Hematocrit 40.1 % (41.0-53.0); Hemoglobin 14.3 g/dL (13.5-17.5); Mean Corpuscular Hemoglobin 30.7 pg (28.0-32.0); Mean Corpuscular Volume 86.5 fL (80.0-100.0); Nucleated Red Blood Cells % 0.0 %
[2025-08-05 17:31] LABS: Potassium 4.3 mmol/L (3.5-5.1)
[2025-08-05 17:32] LABS: Anion Gap 8 (5-15); Carbon Dioxide 27 mmol/L (20-31)
[2025-08-05 17:33] LABS: Calcium 9.5 mg/dL (8.7-10.4)
[2025-08-05 17:36] LABS: Chloride 94 mmol/L (98-107); Sodium 129 mmol/L (136-145)
[2025-08-05 17:37] LABS: BUN/Creatinine Ratio 11.0 (10.0-20.0); Blood Urea Nitrogen 18 mg/dL (9-23)
[2025-08-05 17:56] LABS: Glucose 109 mg/dL (74-106)
[2025-08-05] MEDS ORDERED: CIPR-273 PO (22:06)
[2025-08-05] MEDS ORDERED: CEFD300C2 PO (22:06)
== END 2025-08-05 22:49 | disposition home or self-care (01) ==
LOC: ER 15:46
DX: R30.0 Dysuria (principal); R11.0 Nausea; I10 Essential (primary) hypertension; Z79.899 Other long term (current) drug therapy
CPT/HCPCS: 36415; 80048; 85025

== ENCOUNTER 2025-08-20 07:31 | Outpatient (CLI) | payer MEDICARE, MEDICAID ==
[~2025-08-20 07:31] MED LIST changes: +CEFD300C2 PO; +CIPR-273 PO
[2025-08-20 08:01] LABS: Urine Protein, UAD Negative (Negative)
[2025-08-20 08:02] LABS: Hematocrit 41.0 % (41.0-53.0); Hemoglobin 14.2 g/dL (13.5-17.5); Mean Corpuscular Hemoglobin 30.6 pg (28.0-32.0); Mean Corpuscular Volume 88.0 fL (80.0-100.0); Nucleated Red Blood Cells % 0.0 %
[2025-08-20 08:42] LABS: Alanine Aminotransferase 34 U/L (7-40); Albumin 4.6 g/dL (3.2-4.8); Alkaline Phosphatase 77 U/L (46-116); Anion Gap 10 (5-15); BUN/Creatinine Ratio 13.2 (10.0-20.0); Bilirubin, Total 1.0 mg/dL (0.2-1.0); Blood Urea Nitrogen 21 mg/dL (9-23); Calcium 9.7 mg/dL (8.7-10.4); Carbon Dioxide 28 mmol/L (20-31); Chloride 97 mmol/L (98-107); Glucose 103 mg/dL (74-106); Potassium 3.9 mmol/L (3.5-5.1); Sodium 135 mmol/L (136-145); Total Protein 7.4 g/dL (5.7-8.2)
== END 2025-08-20 17:00 | disposition home or self-care (01) ==
LOC: LAB 07:31
PROVIDERS: ATTEND Student in an Organized Health Care Education/Training Program
DX: I10 Essential (primary) hypertension (principal); R73.9 Hyperglycemia, unspecified
CPT/HCPCS: 36415; 80053; 81001; 83036; 85025